=== PATIENT | female | born 1975 | race Caucasian/White ===

== ENCOUNTER 2022-06-05 09:01 | Observation (INO) | payer BC, MEDICARE ==
[2022-06-05] MEDS ORDERED: ANTIVERT 25 MG PO ONE (09:33)
[2022-06-05] MEDS ORDERED: Sodium Chloride 0.9% 1000 ML 1,000 ML IV STA (09:33)
[2022-06-05] MEDS ORDERED: Zofran 4 MG/2 ML VIAL IV ONE (09:33)
--- NOTE | 2022-06-05 09:33 | ERPHSYRPT ---
- History of Present Illness Time Seen by Provider: 06/05/22 09:20 Source: patient, family Exam Limitations: no limitations Patient Subjective Stated Complaint: " I woke up and felt really dizzy and lightheaded. I feel like I can vomit. I'm so weak". Triage Nursing Assessment: Pt presents to ER with complaints of nausea, dizziness, and generalized weakness. States was Covid+ 6 weeks ago. States woke up this morning around 0730 and felt like this - states struggled to get dressed. Pt is alert and oriented x 3. Appears weak. Skin is pink, warm, and dry. Denies pain. Respirations are easy and unlabored at this time. Pulse is strong. Denies diarrhea or vomiting, states has had nausea all morning. Physician History: This is a 46-year-old white female patient of Dr. Tidwell who presents with dizziness and nausea. Patient states that she woke up this morning open her eyes and the room was spinning. Patient states that she cannot she states that she is never had anything like this before in the past even lift her head without feeling dizzy and nauseated. She denies head injury. There is no new medications that she has been taking. She has a history of hypertension and is only on lisinopril hydrochlorothiazide combination medication. She has no chest pain. She is not short of breath. She has no abdominal pain. Timing/Duration: today Severity: moderate Character of Deficits: none Deficits: cannot stand (Secondary to dizziness), cannot walk (Secondary to dizziness) Baseline/Normal Cognition: alert oriented x 3 Current Cognition: alert oriented x 3 Baseline Gait: walks w/o assistance Associated Symptoms: trouble walking (Secondary to dizziness), No seizures, No slurred speech, No vision changes Allergies/Adverse Reactions: No Known Drug Allergies Allergy (Verified 06/05/22 09:17) Home Medications: Lisinopril/Hydrochlorothiazide [Lisinopril-Hctz 20-25 mg Tab] 25 mg PO DAILY 06/05/22 [History] Hx Tetanus, Diphtheria Vaccination/Date Given: No Hx Influenza Vaccination/Date Given: No Hx Pneumococcal Vaccination/Date Given: No Immunizations Up to Date: No Travel Risk - International Travel Have you traveled outside of the country in past 3 weeks: No - Coronavirus Screening Are you exhibiting any of the following symptoms?: Yes Symptoms: Headaches/Body Aches/Fatigue Close contact with a COVID-19 positive Pt in past 14-21 Days: No - Vaccine Status Have you recieved a Covid-19 vaccination: Yes [employer]: [employer] - Review of Systems Constitutional: Weakness Eyes: No Symptoms Ears, Nose, & Throat: No Symptoms Respiratory: No Symptoms Cardiac: No Symptoms Abdominal/Gastrointestinal: No Symptoms Genitourinary Symptoms: No Symptoms Musculoskeletal: No Symptoms Skin: No Symptoms Neurological: No Symptoms Psychological: No Symptoms Endocrine: No Symptoms Hematologic/Lymphatic: No Symptoms Immunological/Allergic: No Symptoms All Other Systems: Reviewed and Negative - Past Medical History Pertinent Past Medical History: Yes Cardiac History: Hypertension - Past Surgical History Past Surgical History: Yes Gastrointestinal: Cholecystectomy Female Surgical History: Tubal Ligation Other Surgical History: skin grafts x 4, pancreatic tumor removal (non cancerous), removal of 1/3 of pancreas. Eye surgery - Social History Smoking Status: Never smoker Exposure to second hand smoke: No Drug Use: none Patient Lives Alone: No - Female History Hx Now: No - Nursing Vital Signs Nursing Vital Signs: Initial Vital Signs Temperature 97.4 F 06/05/22 09:08 Respiratory Rate 18 06/05/22 09:08 Blood Pressure 144/89 06/05/22 09:08 O2 Sat by Pulse Oximetry 98 06/05/22 09:08 Pain Scale Pain Intensity 0 - [place] Coma Scale Best Eye Response ([place]): (4) open spontaneously Best Verbal Response ([place]): (5) oriented Best Motor Response ([place]): (6) obeys commands [place] Total: 15 - Physical Exam General Appearance: mild distress, alert, anxiety Eye Exam: bilateral eye: normal inspection, PERRL, EOMI Ears, Nose, Throat Exam: normal ENT inspection, moist mucous membranes Neck Exam: normal inspection, non-tender, supple, full range of motion Respiratory: normal breath sounds, lungs clear, airway intact, No chest tenderness, No respiratory distress Cardiovascular: regular rate/rhythm, normal heart sounds, normal peripheral pulses Gastrointestinal: soft, normal bowel sounds, No tenderness Rectal Exam: not done Back Exam: normal inspection, No CVA tenderness, No vertebral tenderness Extremity Exam: normal inspection, normal range of motion, pelvis stable Mental Status: alert, 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, normal speech, PERRL, tongue midline Motor/Sensory: no motor deficit, no sensory deficit Skin Exam: normal color, warm, dry SpO2 Interpretation: normal SpO2: 98 O2 Delivery: Room Air - Course Nursing assessment & vital signs reviewed: Yes EKG Interpreted by Me: RATE (51), Sinus Rhythm, NORMAL AXIS, NORMAL INTERVALS, NORMAL QRS, NORMAL ST-T, Other (No acute ischemic changes.) Ordered Tests: Active Orders 24 hr Category Date Time Status Clean Catch Urine Specimen STAT Care 06/05/22 09:33 Active EKG-ER Only STAT Care 06/05/22 09:33 Active IV Insertion STAT Care 06/05/22 09:33 Active HEAD WITHOUT CONTRAST [CT] Stat Exams 06/05/22 10:00 Completed CBC W DIFF Stat Lab 06/05/22 09:30 Completed CMP Stat Lab 06/05/22 09:30 Completed ETHYL ALCOHOL Stat Lab 06/05/22 09:30 Completed MAGNESIUM Stat Lab 06/05/22 09:30 Completed Yell Screen Stat Lab 06/05/22 09:30 Completed TROPONIN Q3H Lab 06/05/22 09:30 Completed TROPONIN Q3H Lab 06/05/22 12:45 Ordered TROPONIN Q3H Lab 06/05/22 15:45 Ordered TROPONIN Q3H Lab 06/05/22 18:45 Ordered TROPONIN Q3H Lab 06/05/22 21:45 Ordered UA W/RFX CULTURE Stat Lab 06/05/22 10:30 Completed Urine Triage Profile Stat Lab 06/05/22 10:30 Completed Transfer Order Routine Transfer 06/05/22 Ordered Medication Summary Discontinued Medications Generic Name Dose Route Start Last Admin Trade Name Mikieq PRN Reason Stop Dose Admin Sodium Chloride 1,000 mls @ 999 mls/hr 06/05/22 09:33 06/05/22 09:39 Sodium Chloride 0.9% 1000 Ml IV 06/05/22 10:33 999 mls/hr .Q1H1M STA Administration Sodium Chloride Confirm 06/05/22 09:37 Sodium Chloride 0.9% 1000 Ml Administered 06/05/22 09:38 Dose 1,000 mls @ ud .ROUTE .STK-MED ONE Meclizine HCl 25 mg 06/05/22 09:33 06/05/22 09:38 Meclizine Hcl 25 Mg Tablet PO 06/05/22 09:34 25 mg STAT ONE Administration Meclizine HCl Confirm 06/05/22 09:37 Meclizine Hcl 25 Mg Tablet Administered 06/05/22 09:38 Dose 25 mg .ROUTE .STK-MED ONE Ondansetron HCl 4 mg 06/05/22 09:33 06/05/22 09:38 Ondansetron Hcl 4 Mg/2 Ml Vial IV 06/05/22 09:34 4 mg STAT ONE Administration Ondansetron HCl Confirm 06/05/22 09:37 Ondansetron Hcl 4 Mg/2 Ml Vial Administered 06/05/22 09:38 Dose 4 mg .ROUTE .STK-MED ONE Lab/Rad Data: Laboratory Result Diagrams 06/05/22 09:30 06/05/22 09:30 Laboratory Results 06/05/22 06/05/22 06/05/22 Range/Units 10:30 10:30 09:30 WBC (4.0-10.5) x10^3/uL RBC (4.1-5.4) x10^6/uL Hgb (12.0-16.0) g/dL Hct (35-47) % MCV (78-100) fL MCH (26-32) pg MCHC (32-36) g/dL RDW (11.5-14.0) % Plt Count (150-450) x10^3/uL MPV (7.5-11.0) fL Gran % (36.0-66.0) % Immature Gran % (Auto) (0.00-0.4) % Nucleat RBC Rel Count (0.00-0.1) % Eos # (Auto) (0-0.5) x10^3/uL Immature Gran # (Auto) (0.00-0.03) x10^3u/L Absolute Lymphs (auto) (1.0-4.6) x10^3/uL Absolute Monos (auto) (0.0-1.3) x10^3/uL Absolute Nucleated RBC (0.00-0.01) x10^3u/L Lymphocytes % (24.0-44.0) % Monocytes % (0.0-12.0) % Eosinophils % (0.00-5.0) % Basophils % (0.0-0.4) % Absolute Granulocytes (1.4-6.9) x10^3/uL Basophils # (0-0.4) x10^3/uL Sodium (137-145) mmol/L Potassium (3.5-5.1) mmol/L Chloride (98-107) mmol/L Carbon Dioxide (22-30) mmol/L Anion Gap (5-15) MEQ/L BUN (7-17) mg/dL Creatinine (0.52-1.04) mg/dL Estimated GFR ML/MIN Glucose (74-106) mg/dL Calcium (8.4-10.2) mg/dL Magnesium (1.6-2.3) mg/dL Total Bilirubin (0.2-1.3) mg/dL AST (14-36) U/L ALT (0-35) U/L Alkaline Phosphatase (38-126) U/L Troponin I (0.000-0.034) ng/mL Serum Total Protein (6.3-8.2) g/dL Albumin (3.5-5.0) g/dL Urinalys Dipstick Clnc MAIN LAB Urine Color DARK YELLOW (YELLOW) Urine Appearance SLIGHTLY CLOUDY (CLEAR) Urine pH 6.0 (5-6) Ur Specific [place] 1.025 (1.005-1.025) POC Urine Protein Conf NEGATIVE (Negative) Urine Ketones NEGATIVE (NEGATIVE) Urine Nitrite NEGATIVE (NEGATIVE) Urine Bilirubin NEGATIVE (NEGATIVE) Urine Urobilinogen 0.2 (0-1) mg/dL Urine Leukocytes NEGATIVE (NEGATIVE) Urine WBC (Auto) 3-5 (0-5) /HPF Urine RBC (Auto) 0-2 (0-2) /HPF U Epithel Cells (Auto) RARE (FEW) /HPF Urine Bacteria (Auto) FEW (NEGATIVE) /HPF Urine RBC NEGATIVE (0-5) Bryant/ul Urine Mucus (Auto) SLIGHT (NEGATIVE) /HPF Ur Culture Indicated? NO Urine Glucose NEGATIVE (NEGATIVE) mg/dL Urine Opiates Level NEGATIVE (NEGATIVE) Ur Methadone NEGATIVE (NEGATIVE) Urine Barbiturates NEGATIVE (NEGATIVE) Ur Phencyclidine (PCP) NEGATIVE (NEGATIVE) Urine Amphetamine NEGATIVE (NEGATIVE) U Benzodiazepine Level NEGATIVE (NEGATIVE) Urine Cocaine NEGATIVE (NEGATIVE) Urine Marijuana (THC) NEGATIVE (NEGATIVE) Ethyl Alcohol (0-10) mg/dL Monoscreen NEGATIVE (Negative) 06/05/22 06/05/22 06/05/22 Range/Units 09:30 09:30 09:30 WBC 8.1 (4.0-10.5) x10^3/uL RBC 4.28 (4.1-5.4) x10^6/uL Hgb 12.9 (12.0-16.0) g/dL Hct 38.5 (35-47) % MCV 90.0 (78-100) fL MCH 30.1 (26-32) pg MCHC 33.5 (32-36) g/dL RDW 12.1 (11.5-14.0) % Plt Count 267 (150-450) x10^3/uL MPV 11.3 H (7.5-11.0) fL Gran % 51.2 (36.0-66.0) % Immature Gran % (Auto) 0.4 (0.00-0.4) % Nucleat RBC Rel Count 0.0 (0.00-0.1) % Eos # (Auto) 0.11 (0-0.5) x10^3/uL Immature Gran # (Auto) 0.03 (0.00-0.03) x10^3u/L Absolute Lymphs (auto) 3.03 (1.0-4.6) x10^3/uL Absolute Monos (auto) 0.70 (0.0-1.3) x10^3/uL Absolute Nucleated RBC 0.00 (0.00-0.01) x10^3u/L Lymphocytes % 37.6 (24.0-44.0) % Monocytes % 8.7 (0.0-12.0) % Eosinophils % 1.4 (0.00-5.0) % Basophils % 0.7 (0.0-0.4) % Absolute Granulocytes 4.12 (1.4-6.9) x10^3/uL Basophils # 0.06 (0-0.4) x10^3/uL Sodium 134 L (137-145) mmol/L Potassium 4.1 (3.5-5.1) mmol/L Chloride 102 (98-107) mmol/L Carbon Dioxide 25 (22-30) mmol/L Anion Gap 11.2 (5-15) MEQ/L BUN 11 (7-17) mg/dL Creatinine 0.60 (0.52-1.04) mg/dL Estimated GFR > 60.0 ML/MIN Glucose 196 H (74-106) mg/dL Calcium 9.2 (8.4-10.2) mg/dL Magnesium 1.7 (1.6-2.3) mg/dL Total Bilirubin 0.70 (0.2-1.3) mg/dL AST 60 H (14-36) U/L ALT 95 H (0-35) U/L Alkaline Phosphatase 61 (38-126) U/L Troponin I < 0.012 (0.000-0.034) ng/mL Serum Total Protein 7.1 (6.3-8.2) g/dL Albumin 3.9 (3.5-5.0) g/dL Urinalys Dipstick Clnc Urine Color (YELLOW) Urine Appearance (CLEAR) Urine pH (5-6) Ur Specific [place] (1.005-1.025) POC Urine Protein Conf (Negative) Urine Ketones (NEGATIVE) Urine Nitrite (NEGATIVE) Urine Bilirubin (NEGATIVE) Urine Urobilinogen (0-1) mg/dL Urine Leukocytes (NEGATIVE) Urine WBC (Auto) (0-5) /HPF Urine RBC (Auto) (0-2) /HPF U Epithel Cells (Auto) (FEW) /HPF Urine Bacteria (Auto) (NEGATIVE) /HPF Urine RBC (0-5) [place]/ul Urine Mucus (Auto) (NEGATIVE) /HPF Ur Culture Indicated? Urine Glucose (NEGATIVE) mg/dL Urine Opiates Level (NEGATIVE) Ur Methadone (NEGATIVE) Urine Barbiturates (NEGATIVE) Ur Phencyclidine (PCP) (NEGATIVE) Urine Amphetamine (NEGATIVE) U Benzodiazepine Level (NEGATIVE) Urine Cocaine (NEGATIVE) Urine Marijuana (THC) (NEGATIVE) Ethyl Alcohol < 10 (0-10) mg/dL Monoscreen (Negative) - Progress Progress: re-examined Progress Note: 06/05/22 10:32 CAT scan of the head without contrast shows no acute intracranial abnormality. The paranasal sinuses are clear from any inflammatory changes or fluid Patient is refusing the COVID swab because she wants to do it herself and lab states that they have to perform the test on her. Patient does not want to move her head therefore she is refusing. 06/05/22 11:16 Medical decision making: This patient continues to have vertigo/dizziness despite IV fluids, Zofran, meclizine. She is not significantly improved. I think she would be best served to be placed in observation. I did speak with her primary care provider, Dr. Tidwell and he agrees. Counseled pt/family regarding: lab results, diagnosis, need for follow-up, rad results - Departure Departure Disposition: Observation Clinical Impression: Vertigo Condition: Stable Critical Care Time: No Referrals: IRA TIDWELL MD [Primary Care Provider] - Follow up/PCP as directed
[2022-06-05] MEDS ORDERED: Zofran 4 MG/2 ML VIAL ONE (09:37)
[2022-06-05] MEDS ORDERED: ANTIVERT 25 MG ONE (09:37)
[2022-06-05] MEDS ORDERED: Sodium Chloride 0.9% 1000 ML 1,000 ML ONE (09:37)
[2022-06-05 09:46] LABS: Absolute Neutrophil Ct (ANC) 4.12 x10^3/uL (1.4-6.9); Basophil (Absolute #) 0.06 x10^3/uL (0-0.4); Eosinophil % 1.4 % (0.00-5.0); Eosinophil (Absolute #) 0.11 x10^3/uL (0-0.5); Hematocrit 38.5 % (35-47); Hemoglobin 12.9 g/dL (12.0-16.0); Lymphocyte (Absolute #) 3.03 x10^3/uL (1.0-4.6); Lymphocytes % 37.6 % (24.0-44.0); Mean Corpuscular Hemoglobin 30.1 pg (26-32); Mean Corpuscular Hgb Concent. 33.5 g/dL (32-36); Mean Platelet Volume 11.3 fL (7.5-11.0); Monocytes % 8.7 % (0.0-12.0); Neutrophil % 51.2 % (36.0-66.0); Platelet Count 267 x10^3/uL (150-450); Red Blood Count 4.28 x10^6/uL (4.1-5.4); Red Cell Distribution Width 12.1 % (11.5-14.0); White Blood Count 8.1 x10^3/uL (4.0-10.5)
[2022-06-05 09:56] LABS: ALBUMIN 3.9 g/dL (3.5-5.0); ALKALINE PHOSPHATASE 61 U/L (38-126); ANION GAP 11.2 MEQ/L (5-15); BLOOD UREA NITROGEN 11 mg/dL (7-17); CHLORIDE 102 mmol/L (98-107); Calcium 9.2 mg/dL (8.4-10.2); Carbon Dioxide 25 mmol/L (22-30); EST GLOMERULAR FILTRATION RATE > 60.0 ML/MIN; ETHYL ALCOHOL < 10 mg/dL (0-10); Glucose 196 mg/dL (74-106); MAGNESIUM 1.7 mg/dL (1.6-2.3); Potassium 4.1 mmol/L (3.5-5.1); SGOT/AST 60 U/L (14-36); SGPT/ALT 95 U/L (0-35); SODIUM 134 mmol/L (137-145); Total Protein 7.1 g/dL (6.3-8.2)
--- NOTE | 2022-06-05 10:27 | XRAY ---
Exam: CT of the head without IV contrast. CTDI: 53.92 mGy Comparison: CT of the head without IV contrast from 09/23/2021. Indication: 46-year-old female with dizziness; no known injury. Technique: Non-IV contrast axial images were obtained through the brain. Reconstructed coronal and sagittal images were created and reviewed. Findings: The ventricles are within normal limits of size. No focal mass effect or midline shift is seen. Yadav matter-white matter interfaces are adequately preserved. There are questionable subtle white matter changes within the periventricular white matter. I don't believe this represents a change from 09/23/2021. No acute intracranial bleed or abnormal extra-axial fluid collection is seen. No discrete low attenuation infarct is seen within a major cerebral or cerebellar artery distribution. The calvarium of the skull appears intact. The visualized paranasal sinuses appear essentially clear without air-fluid levels. The mastoid air cells are clear without effusion. The ossicles within the middle ear cavities appear unremarkable bilaterally. The orbits reveal no gross abnormality. Impression: 1. No acute intracranial bleed or other acute intracranial process is seen. The findings are essentially unchanged from 09/23/2021.
[2022-06-05 10:34] LABS: Epithelial Cells RARE /HPF (FEW); Mucus SLIGHT /HPF (NEGATIVE); RBC 0-2 /HPF (0-2)
[2022-06-05 10:36] LABS: Appearance SLIGHTLY CLOUDY (CLEAR); Bacteria FEW /HPF (NEGATIVE); Bilirubin NEGATIVE (NEGATIVE); Dipstick done @ ? MAIN LAB; Glucose NEGATIVE (NEGATIVE); Ketones NEGATIVE (NEGATIVE); Nitrite NEGATIVE (NEGATIVE); Protein,Urine Dip NEGATIVE (Negative); RBC NEGATIVE Ery/ul (0-5); Specific Gravity 1.025 (1.005-1.025); Urobilinogen 0.2 mg/dL (0-1)
[2022-06-05 10:37] LABS: Urine Cultured Indicated? NO
[2022-06-05 10:48] LABS: Amphetamine,Urine NEGATIVE (NEGATIVE); Barbiturate,Urine NEGATIVE (NEGATIVE); Benzodiazepine,Urine NEGATIVE (NEGATIVE); Cocaine,Urine NEGATIVE (NEGATIVE); Methadone,Urine NEGATIVE (NEGATIVE); Opiate,Urine NEGATIVE (NEGATIVE); PCP,Urine NEGATIVE (NEGATIVE); THC,Urine NEGATIVE (NEGATIVE)
[2022-06-05 12:04] LABS: INFLUENZA A NEGATIVE (NEGATIVE); INFLUENZA B NEGATIVE (NEGATIVE); RESPIRATORY SYNCTIAL VIRUS NEGATIVE (Negative); SARS-CoV-2 Xpert Express NEGATIVE (NEGATIVE)
[2022-06-05] MEDS ORDERED: Zofran 4 MG/2 ML VIAL IV PRN (12:29)
[2022-06-05] MEDS ORDERED: TYLENOL 325 MG PO PRN (12:29)
[2022-06-05] MEDS: Sodium Chloride 0.9% 1000 ML 1,000 ML IV SCH (13:26)
[2022-06-05] MEDS: Zestril 20 MG PO SCH (16:58)
[2022-06-05] MEDS: ANTIVERT 25 MG PO PRN (16:58)
[2022-06-05] MEDS: hydroDIURIL 25 MG PO SCH (16:59)
[2022-06-06] MEDS: ANTIVERT 25 MG PO PRN ×2 (04:47→09:18)
[2022-06-06 05:12] LABS: Absolute Neutrophil Ct (ANC) 3.51 x10^3/uL (1.4-6.9); Basophil (Absolute #) 0.04 x10^3/uL (0-0.4); Eosinophil % 1.6 % (0.00-5.0); Eosinophil (Absolute #) 0.12 x10^3/uL (0-0.5); Lymphocytes % 43.1 % (24.0-44.0); Mean Cell Volume 89.9 fL (78-100); Mean Corpuscular Hgb Concent. 33.3 g/dL (32-36); Mean Platelet Volume 11.4 fL (7.5-11.0); Monocyte (Absolute #) 0.53 x10^3/uL (0.0-1.3); Monocytes % 7.1 % (0.0-12.0); Neutrophil % 47.4 % (36.0-66.0); Platelet Count 212 x10^3/uL (150-450); Red Blood Count 3.67 x10^6/uL (4.1-5.4); Red Cell Distribution Width 12.1 % (11.5-14.0); White Blood Count 7.4 x10^3/uL (4.0-10.5)
[2022-06-06 06:26] LABS: ALKALINE PHOSPHATASE 49 U/L (38-126); ANION GAP 7.8 MEQ/L (5-15); BLOOD UREA NITROGEN 8 mg/dL (7-17); CHLORIDE 106 mmol/L (98-107); Calcium 8.5 mg/dL (8.4-10.2); Carbon Dioxide 22 mmol/L (22-30); Creatinine 1 0.55 mg/dL (0.52-1.04); EST GLOMERULAR FILTRATION RATE > 60.0 ML/MIN; Glucose 161 mg/dL (74-106); SGOT/AST 38 U/L (14-36); SGPT/ALT 66 U/L (0-35); SODIUM 132 mmol/L (137-145); Total Protein 5.7 g/dL (6.3-8.2)
[2022-06-06] MEDS: hydroDIURIL 25 MG PO SCH (09:13)
[2022-06-06] MEDS: Zestril 20 MG PO SCH (09:13)
[2022-06-06] MEDS: Sodium Chloride 0.9% 1000 ML 1,000 ML IV SCH (09:14)
[2022-06-06] MEDS ORDERED: NON-FORMULARY ITEM (Lisinopril/Hydrochlorothiazide [Lisinopril-Hctz 20-12.5 Mg Tab] 1 EACH PO SCH (10:00)
[2022-06-06 11:29] VITALS: BP 125/65; PULSE 61; O2SAT 98
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
== END 2022-06-06 12:10 | disposition home or self-care (01) ==
LOC: ED 09:01 → MED SURG 12:27
PROVIDERS: ADMIT General Practice; ATTEND General Practice
DX: R42 Dizziness and giddiness (principal); R11.0 Nausea; R51.9 Headache, unspecified; I10 Essential (primary) hypertension; Z79.899 Other long term (current) drug therapy
CPT/HCPCS: 0241U; 36000; 36415; 70450; 80053; 80307; 81015; 83735; 84484; 85025; 86308; 93005; 96360; 96374; 99285; G0378; G0480; J2405; A9270-GY